=== PATIENT | male | born 1950 | race Caucasian/White ===

== ENCOUNTER 2018-04-26 08:41 | Emergency (ER) | payer MEDICARE, BC | END 2018-04-26 09:50 | disposition home or self-care (01) | LOC: ERS 08:41 | DX: M25.561 Pain in right knee (principal); M25.562 Pain in left knee; I10 Essential (primary) hypertension; E78.00 Pure hypercholesterolemia, unspecified; F32.9 Major depressive disorder, single episode, unspecified; Z79.899 Other long term (current) drug therapy | CPT/HCPCS: 99282 ==

== ENCOUNTER 2018-07-02 09:47 | Outpatient (CLI) | payer MEDICARE, BC ==
--- NOTE | 2018-07-02 12:12 | RAD ---
NEUTRAL FLEXION AND EXTENSION LATERAL RADIOGRAPHS OF THE CERVICAL SPINE: Date: 07/02/18 COMPARISON: None. HISTORY: Cervical spine pain. FINDINGS: There is mid degenerative change at the atlantoaxial interspace. There is mild corticated contour irr egularity involving the dens, which could be congenital in nature, or could be related to remote frac ture. The neutral lateral examination demonstrates disc space narrowing, degenerative end plate garcia e, and anterior osteophyte formation at C4-5, C5-6, C6-7, and C7-T1, most prominent at C5-6 and C6-7. Neutral lateral imaging demonstrates anterolisthesis of C7 on T1 measuring approximately 4.0 mm. Thi s is stable on extension imaging. It is not well visualized on flexion imaging. No additional areas o f anterolisthesis or retrolisthesis noted on the extension view. On the flexion view, there is minima l anterolisthesis at C2-3, C3-4, and C4-5 measuring in the 2.0 mm range. IMPRESSION: Multilevel degenerative change noted within the cervical spine, most prominent inferiorly. There is a nterolisthesis at the C7-T1 level as above. POS: [facility]
== END 2018-07-02 09:48 | disposition home or self-care (01) ==
LOC: TBSIIMAG 09:47
PROVIDERS: ATTEND Neurological Surgery
DX: M54.2 Cervicalgia (principal); M47.892 Other spondylosis, cervical region; M43.13 Spondylolisthesis, cervicothoracic region
CPT/HCPCS: 72040

== ENCOUNTER 2018-07-13 13:00 | Outpatient (CLI) | payer MEDICARE, BC ==
--- NOTE | 2018-07-13 16:15 | MRI ---
MRI OF THE CERVICAL SPINE WITHOUT CONTRAST: INDICATION: Cervical radiculopathy. The patient reportedly has a crick in his neck with bilateral hand num bness for the last 6 weeks. COMPARISON: Radiograph of the cervical spine dated July 02, 2018. FINDINGS: There is a bony hemangioma within T2. The bone marrow signal intensity appears within normal limits. The posterior fossa is unremarkable-appearing. There is loss of the normal disk signal and height at T4-5, C5-6, C6-7, and C7-T1. There is grade I anterolisthesis of C7 on T1. The visualized prevertebral soft tissues appear within normal limits. Craniocervical junction on the sagittal images appear within normal limits. At C2-C3, there is moderate facet joint degenerative change and a broad-based disk bulge. There is n o appreciable central canal or neural foraminal narrowing. At C3-4, there is moderate facet joint degenerative change and a broad-based disk bulge. There is no appreciable central canal or neural foraminal narrowing. At C4-5, there is a broad-based bulge with a superimposed central protrusion causing mild effacement of the ventral spinal cord without cord signal abnormality. There is uncovertebral hypertrophy great er on the left inducing moderate left and mild right neural foraminal narrowing. At C5-6, there is a broad-based bulge with uncovertebral hypertrophy and facet joint degenerative tati nge inducing moderate right and mild left neural foraminal narrowing with mild central canal narrowin g. At C6-7, there is a broad-based bulge with uncovertebral hypertrophy inducing mild bilateral neural f oraminal narrowing and mild central canal narrowing. At C7-T1, there is a broad-based bulge without appreciable central canal or neural foraminal narrowin g. IMPRESSION: 1. Multilevel spondylosis of the cervical spine most pronounced at C4-5 through C7-T1. There is mil d central canal narrowing seen at c4-5, C5-6, and C6-7. 2. Grade I anterolisthesis of C7 on T1. 3. Multilevel neural foraminal narrowing as above. 4. Bony hemangioma within T2. POS: [facility]
== END 2018-07-13 13:01 | disposition home or self-care (01) ==
LOC: TBSIIMAG 13:00
PROVIDERS: ATTEND Neurological Surgery
DX: M47.22 Other spondylosis with radiculopathy, cervical region (principal); M47.23 Other spondylosis with radiculopathy, cervicothoracic region; M48.02 Spinal stenosis, cervical region; M99.81 Other biomechanical lesions of cervical region; M43.13 Spondylolisthesis, cervicothoracic region; D18.09 Hemangioma of other sites
CPT/HCPCS: 72141

== ENCOUNTER 2018-12-16 09:01 | Outpatient (CLI) | payer MEDICARE, BC ==
--- NOTE | 2018-12-16 09:12 | RAD ---
TWO VIEWS CHEST: Comparison: 09-04-13 History: Cough. FINDINGS: Two views of the chest show normal sized cardiomediastinal silhouette. There is no evidence of consol idation, mass, or pleural effusion. The bones are unremarkable. IMPRESSION: No evidence of acute cardiopulmonary disease. POS: [facility]
== END 2018-12-16 09:02 | disposition home or self-care (01) ==
LOC: RAD-FRANK 09:01
PROVIDERS: ATTEND Nurse Practitioner Family
DX: J41.1 Mucopurulent chronic bronchitis (principal)
CPT/HCPCS: 71046

== ENCOUNTER 2019-03-18 06:55 | Outpatient (CLI) | payer MEDICARE, BC ==
--- NOTE | 2019-03-18 07:58 | ULT ---
GALLBLADDER ULTRASOUND: Date: 03/18/19 COMPARISON: 11/30/14. HISTORY: Right upper quadrant pain. FINDINGS: The head and proximal pancreatic body have a normal echotexture. The remainder of the pancreas is obs cured by bowel gas. Hepatic parenchyma demonstrates a heterogeneous echotexture, which may be due to hepatic steatosis or hepatocellular disease. Subsequent evaluation for hepatic masses and intrahepatic biliary dilatation limited. Right hepatic lobe measures 18.0 cm. Main portal vein is patent. Appropriate direction of flow. Common bile duct diameter is 0.5 cm. No sonographic evidence of cholelithiasis, gallbladder wall thickening, or pericholecystic fluid. Neg ative Baker's sign. Right kidney has a normal cortical echotexture. No hydronephrosis. Right kidney measures 4.8 x 10.7 x 4.9 cm. IMPRESSION: 1. No sonographic evidence of cholelithiasis or cholecystitis. 2. Increased echotexture of the liver, likely due to hepatic steatosis. Consider further imaging if there is concern for liver mass. POS: [facility]
== END 2019-03-18 06:56 | disposition home or self-care (01) ==
LOC: SCSULT 06:55
PROVIDERS: ATTEND Internal Medicine Gastroenterology
DX: R10.11 Right upper quadrant pain (principal); R93.2 Abnormal findings on diagnostic imaging of liver and biliary tract
CPT/HCPCS: 76705

== ENCOUNTER 2019-05-05 17:42 | Emergency (ER) | payer MEDICARE, BC ==
[2019-05-05] MEDS ORDERED: cloNIDine 0.1 MG TAB ONE (18:06)
[2019-05-05 18:15] LABS: #Basophils 0.1 thou/uL (0.0-0.2); #Eosinphils 0.2 thou/uL (0.0-0.7); #Lymphocytes 1.8 thou/uL (1.20-3.40); #Monocytes 0.5 thou/uL (0.11-0.59); #Neutrophils 5.6 thou/uL (1.40-6.50); %Basophils 0.7 % (0.0-1.0); %Eosinophils 2.4 % (0.0-10.0); %Lymphocytes 22.5 % (21.0-51.0); %Monocytes 6.1 % (0.0-10.0); %Neutrophils 68.4 % (42.0-75.0); Hemoglobin 16.1 g/dL (14.0-18.0); Mean Corpuscular HGB CONC 34.3 g/dL (32.0-36.0); Mean Corpuscular Hemoglobin 30.5 pg (27.0-31.0); Mean Corpuscular Volume 89.1 fL (78.0-98.0); Mean Platelet Volume 6.8 fL (7.4-10.4); Platelet Count 172 thou/uL (130-400); RBC Distribution Width 11.8 % (11.5-14.5); Red Blood Cell (RBC) Count 5.27 mill/uL (4.70-6.10); White Blood Cell (WBC) Count 8.2 thou/uL (4.8-10.8)
[2019-05-05 18:41] LABS: ALT (SGPT) 36 U/L (8-55); AST (SGOT) 28 U/L (5-34); Albumin 4.2 g/dL (3.4-4.8); Alkaline Phosphatase 75 U/L (40-150); Anion Gap 13 mmol/L (10-20); BUN (Urea Nitrogen) 14 mg/dL (8.4-25.7); Bilirubin, Total 0.5 mg/dL (0.2-1.2); Calc. Creatinine Clearance 0 mL/min (70-130); Calcium 9.4 mg/dL (7.8-10.44); Carbon Dioxide 26 mmol/L (23-31); Chloride 104 mmol/L (98-107); Estimated GFR-MDRD Greater than 90; Globulin 3.1 g/dL (2.4-3.5); Glucose 143 mg/dL (80-115); Protein, Total 7.3 g/dL (5.8-8.1); Sodium 139 mmol/L (136-145)
--- NOTE | 2019-05-05 18:43 | RAD ---
PORTABLE CHEST: 05/05/19 HISTORY: Chest pain. Hypertension. Lungs are clear. Heart and mediastinum unremarkable. Vasculature normal. IMPRESSION: No acute findings. POS: [facility]
== END 2019-05-05 19:15 | disposition home or self-care (01) ==
LOC: ERS 17:42
DX: I10 Essential (primary) hypertension (principal); F32.9 Major depressive disorder, single episode, unspecified; Z79.899 Other long term (current) drug therapy
CPT/HCPCS: 71045; 80053; 84484; 85025; 93005

== ENCOUNTER 2019-05-30 17:25 | Emergency (ER) | payer MEDICARE, BC ==
[2019-05-30 17:52] LABS: #Basophils 0.1 thou/uL (0.0-0.2); #Eosinphils 0.2 thou/uL (0.0-0.7); #Lymphocytes 2.1 thou/uL (1.20-3.40); #Monocytes 0.6 thou/uL (0.11-0.59); #Neutrophils 3.6 thou/uL (1.40-6.50); %Eosinophils 2.9 % (0.0-10.0); %Lymphocytes 32.4 % (21.0-51.0); %Monocytes 8.5 % (0.0-10.0); %Neutrophils 55.2 % (42.0-75.0); Hemoglobin 15.1 g/dL (14.0-18.0); Mean Corpuscular HGB CONC 34.7 g/dL (32.0-36.0); Mean Corpuscular Hemoglobin 30.8 pg (27.0-31.0); Mean Corpuscular Volume 88.7 fL (78.0-98.0); Mean Platelet Volume 7.1 fL (7.4-10.4); Platelet Count 207 thou/uL (130-400); RBC Distribution Width 11.7 % (11.5-14.5); White Blood Cell (WBC) Count 6.5 thou/uL (4.8-10.8)
[2019-05-30 18:14] LABS: ALT (SGPT) 20 U/L (8-55); AST (SGOT) 16 U/L (5-34); Albumin 4.3 g/dL (3.4-4.8); Alkaline Phosphatase 66 U/L (40-150); Anion Gap 15 mmol/L (10-20); BUN (Urea Nitrogen) 16 mg/dL (8.4-25.7); Bilirubin, Total 0.5 mg/dL (0.2-1.2); Calc. Creatinine Clearance 0 mL/min (70-130); Calcium 9.6 mg/dL (7.8-10.44); Carbon Dioxide 21 mmol/L (23-31); Chloride 105 mmol/L (98-107); Estimated GFR-MDRD 70; Globulin 2.5 g/dL (2.4-3.5); Glucose 180 mg/dL (80-115); Potassium 3.8 mmol/L (3.5-5.1); Protein, Total 6.8 g/dL (5.8-8.1); Sodium 137 mmol/L (136-145)
[2019-05-30] MEDS ORDERED: Acetaminophen 500 MG TAB ONE (19:25)
--- NOTE | 2019-05-30 22:13 | CT ---
CT BRAIN WITHOUT CONTRAST: Date: 05/30/19 HISTORY: Dizziness. Hypertension. Lightheadedness. Headache. FINDINGS: There are no previous exams for comparison. No evidence of infarct, hemorrhage, midline shift, or abnormal extra-axial fluid collections are seen . The ventricular size is appropriate and the basilar cisterns are patent. The bony calvarium is inta ct. The visualized paranasal sinuses and mastoid air cells are well aerated. IMPRESSION: No CT evidence of acute intracranial process. POS: [facility]
== END 2019-05-30 21:20 | disposition home or self-care (01) ==
LOC: ERS 17:25
DX: R42 Dizziness and giddiness (principal); I10 Essential (primary) hypertension; E78.00 Pure hypercholesterolemia, unspecified; F32.9 Major depressive disorder, single episode, unspecified; Z87.891 Personal history of nicotine dependence; Z79.899 Other long term (current) drug therapy
CPT/HCPCS: 36415; 70450; 80053; 82550; 84484; 85025; 93005; 94760

== ENCOUNTER 2019-07-28 07:47 | Outpatient (CLI) | payer MEDICARE, BC ==
--- NOTE | 2019-07-28 11:32 | MRI ---
MR VENOGRAM: Date: 07/28/19 HISTORY: Chronic pulsatile tinnitus. TECHNIQUE: Routine noncontrast enhanced 2D [id number] MR angiography obtained. FINDINGS: The suprasagittal sinus appears grossly unremarkable. There is an area of incomplete signal within th e posterior inferior aspect of the superior sagittal sinus just proximal to the torcula which is like ly artifactual in nature. The transverse sinus, sigmoid sinus, and internal jugular vein appear mayra l on the right. The transverse sinus on the left is nonvisualized. The sigmoid sinus on the left is v isualized and is quite small, as is the left internal jugular vein. The straight sinus, vein of Golden, and internal cerebral veins appear patent. IMPRESSION: Transverse sinus nonvisualized on left. Sigmoid sinus and internal jugular vein on left are hypoplast ic. 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 The s tudy of choice to evaluate the dural venous sinuses would probably be CT angiogram in this setting. POS: [facility]
--- NOTE | 2019-07-28 14:24 | MRI ---
MR ANGIOGRAM HEAD: 07/28/2019 HISTORY: Pulsatile tenderness. TECHNIQUE: Routine noncontrast enhanced [id number] MR angiography of the brain obtained. Diffusion-weighted imaging was obtained as well. FINDINGS: The diffusion-weighted imaging demonstrates no evidence for acute infarction. The imaged portions of the bilateral vertebral arteries are unremarkable. The basilar artery and its branches are patent. There is a patent posterior communicating artery on t he right. No saccular aneurysm, high grade stenosis or vascular occlusion is seen involving the posterior circu lation. The imaged extracranial ICA is unremarkable bilaterally. The A1 segment is patent bilaterally as are the distal JOSE L branches. The M1 segment and MCA bifurcation appear unremarkable bilaterally, as do distal bilateral MCA branch es. No saccular aneurysm, high grade stenosis or vascular occlusion is seen involving the anterior ci rculation. IMPRESSION: Unremarkable magnetic resonance angiogram of the head. POS: [facility]
== END 2019-07-28 07:48 | disposition home or self-care (01) ==
LOC: BICMRI 07:47
PROVIDERS: ATTEND Specialist
DX: H93.A3 Pulsatile tinnitus, bilateral (principal)
CPT/HCPCS: 70544; 70551

== ENCOUNTER 2019-08-10 13:36 | Outpatient (CLI) | payer MEDICARE, BC ==
--- NOTE | 2019-08-10 15:30 | CT ---
Exam: CT angiogram of the head HISTORY: Pulsatile tinnitus COMPARISON: None TECHNIQUE: Noncontrast head CT is performed in the axial plane. CT angiogram of the head is performed in the axial plane. Three-dimensional reformatted images are submitted for interpretation. FINDINGS: Noncontrast head CT: No parenchymal hemorrhage No extra-axial hematoma No midline shift Basilar cisterns are patent Brain volume is age-appropriate Cortical camacho-white matter differentiation preserved No hydrocephalus Calvarium is intact. Small mucous retention cyst in both maxillary sinuses. Adequate mastoid air cell aeration Postcontrast head CT: Cortical camacho-white matter differentiation is preserved. Pathologic enhancement the brain parenchyma CT ANGIOGRAM: The distal cervical internal carotid arteries have symmetric enhancement and luminal di ameter Anterior circulation: Symmetric enhancement and luminal diameter the A1 and M1 segments. Proximal A2 segments and proximal MCA branches are essentially symmetric. No evidence of aneurysm or significant stenosis in the anterior circulation Posterior circulation: Visualized distal cervical vertebral arteries as well as the intracranial vert ebral arteries are essentially patent. Right PICA artery origin is unremarkable. Left PICA artery origin is not adequately assessed. Both vertebral arteries supply a normal appearing basilar artery. There is appropriate enhancement and luminal diameter. Left and right P1 segments have appropriate enhancement and luminal diameter. No evidence of aneurysm or vascular occlusion. IMPRESSION: Unremarkable CT angiogram of the head. Transcribed Date/Time: 08/10/2019 3:49 PM
== END 2019-08-10 13:37 | disposition home or self-care (01) ==
LOC: BICCT 13:36
PROVIDERS: ATTEND Specialist
DX: H93.A3 Pulsatile tinnitus, bilateral (principal)
CPT/HCPCS: 70496; 82565

== ENCOUNTER 2019-08-13 10:11 | Outpatient (CLI) | payer MEDICARE, BC ==
--- NOTE | 2019-08-13 10:53 | CT ---
CT OF THE ABDOMEN AND PELVIS WITH IV CONTRAST INDICATION: Weight loss and left upper quadrant abdominal pain COMPARISON: None FINDINGS: ABDOMEN: Lung bases: Clear Liver: No focal lesion. Gallbladder: Normal appearing. Pancreas: Normal. Adrenal glands: Normal. Spleen: Splenic camacho and moderate Kidneys and ureters: There are small subcentimeter cysts within the right kidney. No hydronephrosis i s demonstrated. Vasculature: There are mild vascular calcifications seen involving the visualized vasculature. Lymph nodes:No lymphadenopathy. Free fluid in abdomen:No free fluid is evident. PELVIS: Small and large bowel: There are scattered colonic diverticula involving the colon without evidence o f active diverticulitis. The small bowel is of normal caliber. Appendix:Normal Bladder: Normal. Rectal and perirectal soft tissues:Normal. Reproductive structures: Normal. Free fluid in pelvis: No free fluid is evident. Lymphadenopathy pelvis: No lymphadenopathy is evident. Osseous structures: No acute osseous abnormality. No destructive osteolytic or osteoblastic lesion i s identified. There is scattered degenerative and osteoarthritic changes. Soft tissues:Normal. IMPRESSION: 1. No acute abnormality demonstrated within the abdomen and pelvis to explain the patient's weight lo ss and left upper quadrant abdominal pain. 2. Small right renal cyst 3. Colonic diverticulosis 4. Mild atherosclerotic disease of the abdominal aorta.
[2019-08-13] MEDS ORDERED: ISOVUE-370 76%-LOCM 1 ML ONE (12:00)
== END 2019-08-13 10:12 | disposition home or self-care (01) ==
LOC: BICCT 10:11
PROVIDERS: ATTEND Physician Assistant Medical
DX: R63.4 Abnormal weight loss (principal); R10.12 Left upper quadrant pain; N28.1 Cyst of kidney, acquired; K57.30 Diverticulosis of large intestine without perforation or abscess without bleeding; I70.0 Atherosclerosis of aorta
CPT/HCPCS: 74177; Q9966

== ENCOUNTER 2019-10-23 11:08 | Observation (INO) | payer MEDICARE, BC ==
[2019-10-23] MEDS ORDERED: Aspirin Chewable 81 MG TAB ONE (11:19)
[2019-10-23] MEDS ORDERED: Nitroglycerin 2% Ointment 1 INCH/1 GM Packet ONE (11:19)
[2019-10-23 11:40] LABS: #Eosinphils 0.2 thou/uL (0.0-0.7); #Lymphocytes 1.8 thou/uL (1.20-3.40); #Monocytes 0.6 thou/uL (0.11-0.59); #Neutrophils 3.5 thou/uL (1.40-6.50); %Basophils 0.6 % (0.0-1.0); %Eosinophils 3.2 % (0.0-10.0); %Lymphocytes 28.8 % (21.0-51.0); %Monocytes 9.4 % (0.0-10.0); %Neutrophils 58.1 % (42.0-75.0); Hemoglobin 16.2 g/dL (14.0-18.0); Mean Corpuscular HGB CONC 34.7 g/dL (32.0-36.0); Mean Corpuscular Hemoglobin 30.8 pg (27.0-31.0); Mean Corpuscular Volume 88.9 fL (78.0-98.0); Mean Platelet Volume 7.2 fL (7.4-10.4); Platelet Count 186 thou/uL (130-400); RBC Distribution Width 12.2 % (11.5-14.5); Red Blood Cell (RBC) Count 5.26 mill/uL (4.70-6.10); White Blood Cell (WBC) Count 6.1 thou/uL (4.8-10.8)
--- NOTE | 2019-10-23 11:44 | RAD ---
Exam: Chest one view HISTORY:Chest pain Comparison: 05/05/2019 FINDINGS: Cardiac silhouette: Normal Aorta: Unremarkable Pulmonary vessels: Normal Costophrenic angles: Clear LUNGS: No masses or consolidation. Pneumothorax: None Osseous abnormalities: None IMPRESSION: No acute cardiopulmonary process.
[2019-10-23 11:58] LABS: ALT (SGPT) 25 U/L (8-55); AST (SGOT) 16 U/L (5-34); Albumin 4.4 g/dL (3.4-4.8); Alkaline Phosphatase 77 U/L (40-110); Anion Gap 13 mmol/L (10-20); BUN (Urea Nitrogen) 14 mg/dL (8.4-25.7); Bilirubin, Total 0.5 mg/dL (0.2-1.2); CK (CPK) 48 U/L (30-200); Calc. Creatinine Clearance 0 mL/min (70-130); Calcium 9.6 mg/dL (7.8-10.44); Carbon Dioxide 27 mmol/L (23-31); Chloride 104 mmol/L (98-107); Estimated GFR-MDRD Greater than 90; Glucose 104 mg/dL (80-115); Potassium 3.9 mmol/L (3.5-5.1); Protein, Total 7.4 g/dL (5.8-8.1); Sodium 140 mmol/L (136-145)
[2019-10-23] MEDS ORDERED: HYDROcodone/Acetaminophen 5/325 mg Tablet PO PRN ×2 (13:39)
[2019-10-23] MEDS ORDERED: Acetaminophen 325 MG TAB PO PRN ×2 (13:39→15:32)
[2019-10-23] MEDS ORDERED: Ondansetron ODT 4 MG TAB SL PRN (13:39)
[2019-10-23] MEDS ORDERED: Ondansetron PF 4 MG/2 ML Vial IVP PRN (13:39)
[2019-10-23 13:43] VITALS: BMI 27.8
[2019-10-23 14:48] LABS: Troponin I Less than 0.010 ng/mL (< 0.028)
--- NOTE | 2019-10-23 15:07 | CON ---
DATE OF CONSULTATION: 10/23/2019 REASON FOR CONSULTATION: Chest pain. HISTORY OF PRESENT ILLNESS: Mr. Perdue is a very pleasant 69-year-old white gentleman, who comes to the hospital for chest pain. He states that he developed bronchitis about a month ago and has been having this cough ever since. He started having chest pain in midsternal area yesterday and it has been pretty much constant all this time, so became worried and came in for evaluation. Cardiology has been consulted for evaluation of chest pain. He has seen Dr. Moreau in the past. The last time he saw him was in 10/2018, at which time he had an echo and was told everything was unremarkable. He has had a stress test, which was probably 2 or 3 years ago, and he was told that everything was normal. He has been told he needs to take statin drugs, but he has not been taking these. He apparently was on atenolol and losartan on higher doses before, but he lost about 40 pounds and he is cutting them in half now as he does not need as much as he did before. PAST MEDICAL HISTORY: 1. Hypertension. 2. GERD. PAST SURGICAL HISTORY: 1. Right knee ACL repair. 2. Hemorrhoid surgery. SOCIAL HISTORY: Former tobacco user, quit about 40 years ago. No alcohol or drugs. He quit drinking alcohol about 8 months ago. FAMILY HISTORY: Noncontributory. ALLERGIES: TETRACYCLINE GIVES HIM TONGUE SWELLING. OUTPATIENT MEDICATIONS: 1. Atenolol 25 mg a day. 2. Losartan half a tablet of a 50 mg of 25 mg daily. REVIEW OF SYSTEMS: A 12-point review of systems was done and was all negative unless stated in the history of present illness. PHYSICAL EXAMINATION: VITAL SIGNS: Temperature 98.2, pulse 62, respiratory rate 20, saturating 96% on room air, and blood pressure 140/88. GENERAL: Awake, alert, and oriented x3, in no distress. HEENT: Normocephalic and atraumatic. NECK: Supple. LUNGS: Clear. CARDIOVASCULAR: S1-S2. No S3 or S4. No murmurs. ABDOMEN: Soft. Positive bowel sounds. EXTREMITIES: No edema. SKIN: Warm and dry. LABORATORY DATA: Laboratory work was reviewed. So far, CBC was unremarkable. Chemistry was completely normal. GFR greater than 90. BNP was 28. Troponin I was undetectable x1. DIAGNOSTIC DATA: EKG was reviewed, right bundle-branch block, but no ischemic changes. Chest x-ray was reviewed. ASSESSMENT AND PLAN: 1. Chest pain, atypical. We will risk stratify with a stress test. Echocardiogram to be done. 2. Hypertension. Blood pressure well controlled. Continue home regimen. Thank you for letting us to participate in the care of your patient. We will follow. Job ID: [id number]
[2019-10-23] MEDS ORDERED: Acetaminophen 650 MG Suppository PR PRN (15:32)
--- NOTE | 2019-10-23 15:58 | PDOC.HHP ---
Hospitalist HPI - History of Present Illness Chest pain History of Present Illness: Mr. Perdue presents with complaints of central chest pain that started yesterday evening and remained constant until today. He is unable to describe the pain nor state the severity but denies any associated shortness of breath, diaphoresis, lightheadedness, nausea or vomiting. States the pain did not radiate. At present the pain is gone. He came in because he was afraid he had recurrent bronchitis which he was diagnosed with in the last month. He denies any fevers, chills, sweats or cough. Occasionally when he clears his throat he has clear sputum. Patient reports his last stress test was 2 years ago. Reports a history of drinking heavily in the past but quit due to a gastric ulcer. ED Course: In the ED he had an EKG showing a right bundle branch block. Labs done showed normal renal function. Unremarkable FBC. BNP 28. Initial trop was negative. Cardiology was consulted. CXR done was unremarkable. Hospitalist ROS - Review of Systems Constitutional: denies: fever, chills, sweats, weakness, malaise, other Eyes: denies: pain, vision change, conjunctivae inflammation, eyelid inflammation, redness, other ENT: denies: ear pain, ear discharge, nose pain, nose discharge, nose congestion , mouth pain, mouth swelling, throat pain, throat swelling, other Respiratory: reports: sputum (clear, in the mornings there is a mild yellow color to it). denies: cough, dry, shortness of breath, hemoptysis, SOB with excertion, pleuritic pain, wheezing, other Cardiovascular: reports: chest pain (has now resolved). denies: palpitations, orthopnea, paroxysmal noc. dyspnea, edema, light headedness, other Gastrointestinal: denies: nausea, vomiting, abdominal pain, diarrhea, constipation, melena, hematochezia, other Genitourinary: denies: dysuria, frequency, incontinence, hematuria, retention, other Musculoskeletal: denies: neck pain, shoulder pain, arm pain, back pain, hand pain, leg pain, foot pain, other Skin: denies: rash, lesions, sheryl, bruising, other Neurological: denies: weakness, numbness, incoordination, change in speech, confusion, seizures, other Hospitalist History - Past Medical History Source: patient Cardiac: reports: HTN Gastrointestinal: reports: GERD - Past Surgical History Past Surgical History: reports: Other (Right knee ACL repair Hemmorhoidectomy) - Exam General Appearance: NAD, awake alert Eye: PERRL, anicteric sclera ENT: normocephalic atraumatic, no oropharyngeal lesions, moist mucosa Neck: supple, symmetric, no lymphadenopathy Heart: RRR, no murmur, no gallops, no rubs, normal peripheral pulses Respiratory: CTAB, no wheezes, no rales, no ronchi, normal chest expansion, no tachypnea Gastrointestinal: soft, non-tender, non-distended, normal bowel sounds, no guarding, no rigidity Extremities: no edema Skin: normal turgor, no lesions, no rashes Neurological: cranial nerve grossly intact, no weakness, no focal deficits Musculoskeletal: normal tone, normal strength, no muscle wasting Psychiatric: normal affect, normal behavior, A&O x 3 Hospitalist Results - Labs Result Diagrams: 10/23/19 11:23 10/23/19 11:23 Lab results: WBC 6.1 thou/uL (4.8-10.8) 10/23/19 11:23 Hgb 16.2 g/dL (14.0-18.0) 10/23/19 11:23 Hct 46.8 % (42.0-52.0) 10/23/19 11:23 MCV 88.9 fL (78.0-98.0) 10/23/19 11:23 Plt Count 186 thou/uL (130-400) 10/23/19 11:23 Neutrophils % 58.1 % (42.0-75.0) 10/23/19 11:23 Sodium 140 mmol/L (136-145) 10/23/19 11:23 Potassium 3.9 mmol/L (3.5-5.1) 10/23/19 11:23 Chloride 104 mmol/L (98-107) 10/23/19 11:23 Carbon Dioxide 27 mmol/L (23-31) 10/23/19 11:23 BUN 14 mg/dL (8.4-25.7) 10/23/19 11:23 Creatinine 0.83 mg/dL (0.7-1.3) 10/23/19 11:23 Glucose 104 mg/dL (80-115) 10/23/19 11:23 Calcium 9.6 mg/dL (7.8-10.44) 10/23/19 11:23 Total Bilirubin 0.5 mg/dL (0.2-1.2) 10/23/19 11:23 AST 16 U/L (5-34) 10/23/19 11:23 ALT 25 U/L (8-55) 10/23/19 11:23 Alkaline Phosphatase 77 U/L (40-110) 10/23/19 11:23 Creatine Kinase 48 U/L (30-200) 10/23/19 11:23 Troponin I Less than 0.010 ng/mL (< 0.028) 10/23/19 14:13 B-Natriuretic Peptide 28.6 pg/mL (0-100) 10/23/19 11:23 Serum Total Protein 7.4 g/dL (5.8-8.1) 10/23/19 11:23 Albumin 4.4 g/dL (3.4-4.8) 10/23/19 11:23 - Radiology Interpretation Chest x-ray Status: report reviewed by ri Hospitalist H&P A/P - Problem (1) Chest pain, atypical Code(s): R07.89 - OTHER CHEST PAIN Status: Resolved (2) Hypertension Code(s): I10 - ESSENTIAL (PRIMARY) HYPERTENSION Status: Chronic (3) GERD (gastroesophageal reflux disease) Code(s): K21.9 - GASTRO-ESOPHAGEAL REFLUX DISEASE WITHOUT ESOPHAGITIS Status: Chronic (4) History of gastric ulcer Code(s): Z87.19 - PERSONAL HISTORY OF OTHER DISEASES OF THE DIGESTIVE SYSTEM Status: Chronic - Plan Plan: Trend troponins, add-on Mg+. TSH and Lipid Panel with AM labs. Seen by Dr. Rich, patient will undergo echo and stress test. Continue cardiac monitoring. Monitor BP. Resume home medications once verified. Famotidine 20 mg BID. Mechanical SCDs/Walking program Code status: FULL Surrogate decision maker: Lu Perdue.
[2019-10-23] MEDS: Nitroglycerin 2% Ointment 1 INCH/1 GM Packet TOP SCH ×2 (16:20→22:27)
[2019-10-23 18:18] LABS: Troponin I Less than 0.010 ng/mL (< 0.028)
[2019-10-23] MEDS: Famotidine/PF 20 mg/2ml Vial SLOW IVP SCH (19:05)
[2019-10-24 04:23] LABS: #Basophils 0.1 thou/uL (0.0-0.2); #Eosinphils 0.2 thou/uL (0.0-0.7); #Lymphocytes 1.5 thou/uL (1.20-3.40); #Monocytes 0.6 thou/uL (0.11-0.59); #Neutrophils 3.8 thou/uL (1.40-6.50); %Eosinophils 2.7 % (0.0-10.0); %Lymphocytes 24.7 % (21.0-51.0); %Monocytes 9.1 % (0.0-10.0); %Neutrophils 62.6 % (42.0-75.0); Hemoglobin 14.5 g/dL (14.0-18.0); Mean Corpuscular HGB CONC 33.2 g/dL (32.0-36.0); Mean Corpuscular Hemoglobin 29.4 pg (27.0-31.0); Mean Corpuscular Volume 88.7 fL (78.0-98.0); Platelet Count 152 thou/uL (130-400); RBC Distribution Width 12.2 % (11.5-14.5); Red Blood Cell (RBC) Count 4.94 mill/uL (4.70-6.10); White Blood Cell (WBC) Count 6.1 thou/uL (4.8-10.8)
[2019-10-24 04:58] LABS: Anion Gap 9 mmol/L (10-20); BUN (Urea Nitrogen) 13 mg/dL (8.4-25.7); Calc. Creatinine Clearance 108 mL/min (70-130); Calcium 8.6 mg/dL (7.8-10.44); Carbon Dioxide 27 mmol/L (23-31); Cardiac Risk 4.6 (Less than 4.5); Chloride 108 mmol/L (98-107); Cholesterol 237 mg/dl (< 200 Desired); Estimated GFR-MDRD Greater than 90; Glucose 90 mg/dL (80-115); HDL Cholesterol 51 mg/dL (>60 Neg Risk); LDL Cholesterol, Calculated 164 mg/dL; Potassium 3.8 mmol/L (3.5-5.1); Sodium 140 mmol/L (136-145); Triglycerides 108 mg/dL (Less than 150)
[2019-10-24] MEDS ORDERED: Losartan 25 MG TAB PO SCH (09:00)
[2019-10-24] MEDS ORDERED: Atenolol 25 MG TAB PO SCH (09:00)
[2019-10-24] MEDS ORDERED: Metamucil PACK PO SCH (09:00)
[2019-10-24] MEDS ORDERED: Multivit, Therapeutic 1 TAB PO SCH (09:00)
[2019-10-24 11:48] VITALS: BP 149/82; TEMP 98.3
[2019-10-24] MEDS: Famotidine/PF 20 mg/2ml Vial SLOW IVP SCH (11:52)
[2019-10-24] MEDS ORDERED: ADENOSINE 60 MG/20 ML VIAL ONE (12:00)
--- NOTE | 2019-10-24 12:32 | NM ---
NM Cardiac Stress W EF WF History: Chest pain Comparison: None. Findings: Stress and rest performed after the intravenous administration of technetium 99m sestamibi. Normal wall motion. Normal ejection fraction of 64%. No scar or ischemia. Impression: Normal nuclear medicine cardiac stress test.
--- NOTE | 2019-10-25 15:04 | DIS ---
DATE OF ADMISSION: 10/23/2019 DATE OF DISCHARGE: 10/24/2019 Mr. Perdue is a 69-year-old male who presented with chest pain. He had the chest pain since yesterday evening and remained constant till the presentation in the ED. The pain is substernal, pressure like, not related to exertion and not relieved by rest and he denied any shortness of breath, diaphoresis, lightheadedness, nausea or vomiting. During his stay, cardiac workup was done. Troponin was negative. EKG did not show any signs of ischemia and nuclear stress test was unremarkable. 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 On discharge, he was hemodynamically stable. PHYSICAL EXAMINATION: VITAL SIGNS: Unremarkable. GENERAL APPEARANCE: No apparent distress. Awake and alert. EYES: PERRL. ENT: Normocephalic and atraumatic. No oropharyngeal lesions. Moist mucosa. HEART: Regular rhythm and rate. No murmurs. No gallops. No rubs. Normal peripheral pulses. RESPIRATORY: Clear to auscultation bilaterally. No wheezes. No rales. No rhonchi. Normal chest expansion. No tachypnea. GI: Soft, nontender, and nondistended. Normal bowel sounds. No guarding. No rigidity. EXTREMITIES: No edema. NEUROLOGIC: Cranial nerves grossly intact. No weakness. No focal deficits. PSYCH: Alert and oriented x3. ASSESSMENT AND PLAN: This is a 69-year-old male who comes in with atypical chest pain. Cardia workup was negative. 1. Musculoskeletal chest pain: a. Cardiac workup was negative. b. The patient was advised to exercise appropriately and take antiinflammatories when having chest pain due to excessive exercise or long posture. c. The patient is scheduled with a Cardiology appointment. 2. Hypertension. a. Blood pressure was well controlled during his inpatient stay. b. We will continue home medications. 3. Gastroesophageal reflux disease. a. Symptoms were well controlled with home medication, so we will continue home medication. 4. History of gastric ulcer. a. The patient has been advised in the past to avoid using antiinflammatories considering gastric ulcer. b. Considering musculoskeletal pain, the patient was advised to use NSAIDs judiciously rather than Tylenol considering the more effective antiinflammatory effect of NSAIDs. . .. Job ID: [id number]
== END 2019-10-24 14:08 | disposition home or self-care (01) ==
LOC: ERS 11:08 → 2SW 13:42
PROVIDERS: ADMIT Internal Medicine; ATTEND Internal Medicine
DX: R07.89 Other chest pain (principal); I10 Essential (primary) hypertension; K21.9 Gastro-esophageal reflux disease without esophagitis; Z87.19 Personal history of other diseases of the digestive system; Z87.891 Personal history of nicotine dependence; Z79.899 Other long term (current) drug therapy
CPT/HCPCS: 71045; 78452; 80048; 80053; 80061; 82550; 83735; 83880; 84443; 84484 ×2; 85025 ×2; 93005; 93017; 93306; 96374; 96376; 99285; A9500; G0378 ×3; 36415; J0153; S0028

== ENCOUNTER 2022-04-03 10:17 | Outpatient (CLI) | payer MEDICARE, BC | END 2022-04-03 10:18 | disposition home or self-care (01) | LOC: TBSIIMAG 10:17 | PROVIDERS: ATTEND Neurological Surgery | DX: M47.26 Other spondylosis with radiculopathy, lumbar region (principal) | CPT/HCPCS: 72148 ==

== ENCOUNTER 2022-08-30 12:50 | Outpatient (CLI) | payer MEDICARE, BC ==
[2022-08-30 13:55] LABS: #Basophils 0.1 10x3/uL (0.0-0.2); #Eosinphils 0.1 10x3/uL (0.0-0.5); #Monocytes 0.5 10x3/uL (0.0-1.1); #Neutrophils 3.3 10x3/uL (1.5-8.4); %Basophils 1.1 % (0.0-2.0); %Eosinophils 2.2 % (0.0-6.0); %Lymphocytes 29.7 % (18.0-47.0); %Monocytes 8.1 % (0.0-10.0); %Neutrophils 58.5 % (40.0-75.0); Hemoglobin 14.4 g/dL (13.5-17.5); Mean Corpuscular HGB CONC 34.3 g/dL (32.0-36.0); Mean Corpuscular Hemoglobin 29.6 pg (27.0-33.0); Mean Corpuscular Volume 86.4 fl (81.2-95.1); Mean Platelet Volume 9.2 fl (7.4-10.4); Platelet Count 176 10x3/uL (150-450); RBC Distribution Width 12.8 % (11.5-14.5); Red Blood Cell (RBC) Count 4.86 10x6/uL (4.32-5.72); White Blood Cell (WBC) Count 5.6 10x3/uL (3.5-10.5)
[2022-08-30 14:16] LABS: Anion Gap 14 mmol/L (10-20); BUN (Urea Nitrogen) 17 mg/dL (8.4-25.7); Calc. Creatinine Clearance 0 mL/min (70-130); Calcium 8.9 mg/dL (7.8-10.44); Carbon Dioxide 22 mmol/L (23-31); Chloride 109 mmol/L (98-107); Estimated GFR 93; Glucose 116 mg/dL (80-115); Potassium 4.1 mmol/L (3.5-5.1); Sodium 141 mmol/L (136-145)
[2022-08-30 17:11] LABS: Hemoglobin A1c 5.1 % (4.0-6.0)
== END 2022-08-30 12:51 | disposition home or self-care (01) ==
LOC: LABBT 12:50
PROVIDERS: ATTEND Specialist
DX: Z01.818 Encounter for other preprocedural examination (principal); K57.92 Diverticulitis of intestine, part unspecified, without perforation or abscess without bleeding
CPT/HCPCS: 80048; 83036; 85025; 93005; 93010

== ENCOUNTER 2022-08-30 13:00 | Inpatient (IN) | payer MEDICARE, BC ==
[2022-09-02 11:17] VITALS: BMI 24.3
[2022-09-03] MEDS ORDERED: FENTANYL 50 MCG/ML 1 ML VIAL ONE (06:45)
[2022-09-03] MEDS ORDERED: Midazolam HCl 2 mg/2 ml Vial ONE (06:45)
[2022-09-03] MEDS ORDERED: EPINEPHrine 1 MG/ML AMP ONE ×2 (06:46→09:11)
[2022-09-03] MEDS ORDERED: Bupivacaine PF 0.5% 30 ML VIAL ONE (06:46)
[2022-09-03] MEDS ORDERED: Ketorolac Tromethamine 30 MG/ML VIAL ONE (07:23)
[2022-09-03] MEDS ORDERED: Acetaminophen 500 MG TAB ONE (07:23)
[2022-09-03] MEDS ORDERED: Dexamethasone 20 MG/5 ML VIAL ONE (08:15)
[2022-09-03] MEDS ORDERED: ePHEDrine 50 MG/ML VIAL ONE (08:15)
[2022-09-03] MEDS ORDERED: Rocuronium Bromide 10 MG/ML (10ML VIAL) ONE (08:15)
[2022-09-03] MEDS ORDERED: Glycopyrrolate 0.2 MG/ML 5 ML SYRINGE ONE (08:15)
[2022-09-03] MEDS ORDERED: Ondansetron PF 4 MG/2 ML Vial ONE (08:15)
[2022-09-03] MEDS ORDERED: NEOSTIGMINE 3 MG/3 ML SYR 3 MG/3 ML SYRINGE ONE (08:15)
[2022-09-03] MEDS ORDERED: PROPOFOL 200 MG/20 ML VIAL ONE (08:15)
[2022-09-03] MEDS ORDERED: Lidocaine 1% (PF) 30 ML VIAL ONE ×2 (08:40→09:11)
[2022-09-03] MEDS ORDERED: Bupivacaine/Epinephrine 0.25% 30 ML VIAL ONE (08:40)
[2022-09-03] MEDS ORDERED: HYDROmorphone 2 MG/ML VIAL ONE (08:56)
[2022-09-03] MEDS ORDERED: Magnesium 5 GM/10 ML Abboject SYRINGE ONE (08:56)
[2022-09-03] MEDS ORDERED: Sodium Chloride 0.9% 100 ML ONE (08:57)
[2022-09-03] MEDS ORDERED: cefOXitin 2 GM VIAL ONE ×3 (08:57→13:17)
[2022-09-03] MEDS ORDERED: HYDROmorphone 2 MG/ML VIAL SLOW IVP PRN (14:03)
[2022-09-03] MEDS ORDERED: Promethazine HCl 25 MG/ML VIAL IM PRN ×2 (14:03→15:38)
[2022-09-03] MEDS ORDERED: Ondansetron HCl/PF 4 MG/2 ML Vial IVP PRN (14:03)
[2022-09-03] MEDS ORDERED: Promethazine HCl 25 MG/ML VIAL IVPB PRN (14:03)
[2022-09-03] MEDS ORDERED: hydrALAZINE 20 MG/ML VIAL SLOW IVP PRN (15:38)
[2022-09-03] MEDS ORDERED: Ondansetron PF 4 MG/2 ML Vial IVP PRN (15:38)
[2022-09-03] MEDS ORDERED: Morphine 4 MG/ML VIAL SLOW IVP PRN (15:43)
[2022-09-03] MEDS: Ketorolac Tromethamine 30 MG/ML VIAL IVP SCH ×2 (16:24→21:08)
[2022-09-03] MEDS: D5 1/2 NS w/20 mEq KCL 1,000 ML IV SCH ×2 (16:25→23:58)
[2022-09-03] MEDS: Morphine 4 MG/ML VIAL SLOW IVP PRN ×2 (18:41→23:10)
[2022-09-03] MEDS: Famotidine/PF 20 mg/2ml Vial SLOW IVP SCH (21:08)
[2022-09-03] MEDS: Enoxaparin Sodium 40 MG/0.4 ML SYRINGE SC SCH (21:08)
[2022-09-03] MEDS: Rosuvastatin 10 MG TAB PO SCH (21:09)
[2022-09-03] MEDS: Famotidine 20 MG TAB PO SCH (21:09)
[2022-09-04] MEDS: Morphine 4 MG/ML VIAL SLOW IVP PRN ×2 (02:08→05:31)
[2022-09-04] MEDS: Ketorolac Tromethamine 30 MG/ML VIAL IVP SCH ×4 (04:15→21:16)
[2022-09-04] MEDS: D5 1/2 NS w/20 mEq KCL 1,000 ML IV SCH ×3 (04:15→16:53)
[2022-09-04 05:29] LABS: #Neutrophils 10.1 thou/uL (1.40-6.50); %Basophils 0.2 % (0.0-1.0); %Eosinophils 0.1 % (0.0-10.0); %Lymphocytes 8.3 % (21.0-51.0); %Monocytes 7.9 % (0.0-10.0); %Neutrophils 83.4 % (42.0-75.0); Hemoglobin 12.5 g/dL (14.0-18.0); Mean Corpuscular HGB CONC 32.4 g/dL (32.0-36.0); Mean Corpuscular Hemoglobin 29.3 pg (27.0-31.0); Mean Corpuscular Volume 90.5 fl (78.0-98.0); Mean Platelet Volume 7.2 fL (7.4-10.4); Platelet Count 152 10x3/uL (130-400); Red Blood Cell (RBC) Count 4.25 mill/uL (4.70-6.10)
[2022-09-04 06:00] LABS: Anion Gap 10 mmol/L (10-20); BUN (Urea Nitrogen) 10 mg/dL (8.4-25.7); Calc. Creatinine Clearance 87 mL/min (70-130); Calcium 8.2 mg/dL (7.8-10.44); Carbon Dioxide 22 mmol/L (23-31); Chloride 109 mmol/L (98-107); Estimated GFR 95; Glucose 121 mg/dL (80-115); Potassium 4.3 mmol/L (3.5-5.1); Sodium 137 mmol/L (136-145)
[2022-09-04] MEDS: Famotidine 20 MG TAB PO SCH ×2 (07:59→21:14)
[2022-09-04] MEDS: Atenolol 25 MG TAB PO SCH (07:59)
[2022-09-04] MEDS: Famotidine/PF 20 mg/2ml Vial SLOW IVP SCH ×2 (08:00→21:15)
[2022-09-04] MEDS: Losartan 25 MG TAB PO SCH (08:00)
[2022-09-04] MEDS ORDERED: HYDROcodone/Acetaminophen 7.5/325 mg Tablet PO PRN (09:32)
[2022-09-04] MEDS: HYDROcodone/Acetaminophen 7.5/325 mg Tablet PO PRN ×2 (14:47→23:46)
[2022-09-04] MEDS ORDERED: Bisacodyl 10 MG SUPP PR SCH (16:30)
[2022-09-04] MEDS: Rosuvastatin 10 MG TAB PO SCH (21:14)
[2022-09-04] MEDS: Melatonin 3 MG TAB PO PRN (21:14)
[2022-09-04] MEDS: Enoxaparin Sodium 40 MG/0.4 ML SYRINGE SC SCH (21:15)
[2022-09-05] MEDS: D5 1/2 NS w/20 mEq KCL 1,000 ML IV SCH ×2 (02:37)
[2022-09-05] MEDS: Ketorolac Tromethamine 30 MG/ML VIAL IVP SCH ×4 (04:25→21:23)
[2022-09-05 05:38] LABS: #Eosinphils 0.1 thou/uL (0.0-0.7); #Lymphocytes 1.7 thou/uL (1.20-3.40); #Monocytes 0.8 thou/uL (0.11-0.59); #Neutrophils 6.9 thou/uL (1.40-6.50); %Basophils 0.4 % (0.0-1.0); %Eosinophils 0.8 % (0.0-10.0); %Lymphocytes 18.1 % (21.0-51.0); %Monocytes 8.1 % (0.0-10.0); %Neutrophils 72.7 % (42.0-75.0); Mean Corpuscular HGB CONC 32.5 g/dL (32.0-36.0); Mean Corpuscular Volume 92.2 fl (78.0-98.0); Mean Platelet Volume 7.2 fL (7.4-10.4); Platelet Count 137 10x3/uL (130-400); RBC Distribution Width 12.1 % (11.5-14.5); White Blood Cell (WBC) Count 9.5 10x3/uL (4.8-10.8)
[2022-09-05] MEDS: Atenolol 25 MG TAB PO SCH (09:07)
[2022-09-05] MEDS: Famotidine/PF 20 mg/2ml Vial SLOW IVP SCH ×2 (09:08→19:58)
[2022-09-05] MEDS: Losartan 25 MG TAB PO SCH (09:08)
[2022-09-05] MEDS: Famotidine 20 MG TAB PO SCH ×2 (09:08→19:58)
[2022-09-05] MEDS: HYDROcodone/Acetaminophen 7.5/325 mg Tablet PO PRN (19:57)
[2022-09-05] MEDS: Melatonin 3 MG TAB PO PRN (19:57)
[2022-09-05] MEDS: Rosuvastatin 10 MG TAB PO SCH (19:58)
[2022-09-05] MEDS: Enoxaparin Sodium 40 MG/0.4 ML SYRINGE SC SCH (19:59)
[2022-09-06] MEDS: Ketorolac Tromethamine 30 MG/ML VIAL IVP SCH ×3 (03:51→15:38)
[2022-09-06] MEDS: Losartan 25 MG TAB PO SCH ×2 (08:16→11:53)
[2022-09-06] MEDS: Atenolol 25 MG TAB PO SCH (08:16)
[2022-09-06] MEDS: Famotidine 20 MG TAB PO SCH (08:17)
[2022-09-06] MEDS: Famotidine/PF 20 mg/2ml Vial SLOW IVP SCH ×2 (08:19→20:40)
[2022-09-06] MEDS ORDERED: Milk Of Magnesia 30 ML UDCUP PO PRN (09:33)
[2022-09-06] MEDS: HYDROcodone/Acetaminophen 7.5/325 mg Tablet PO PRN ×2 (10:58→17:10)
[2022-09-06] MEDS: Enoxaparin Sodium 40 MG/0.4 ML SYRINGE SC SCH (20:40)
[2022-09-06] MEDS: Rosuvastatin 10 MG TAB PO SCH (20:41)
[2022-09-06] MEDS ORDERED: Losartan 25 MG TAB PO SCH (21:00)
[2022-09-07] MEDS: HYDROcodone/Acetaminophen 7.5/325 mg Tablet PO PRN ×2 (01:54→08:44)
[2022-09-07 06:37] VITALS: TEMP 98.2
[2022-09-07 08:41] VITALS: BP 130/83
[2022-09-07] MEDS: Atenolol 25 MG TAB PO SCH (08:45)
[2022-09-07] MEDS: Famotidine/PF 20 mg/2ml Vial SLOW IVP SCH (08:46)
== END 2022-09-07 12:48 | disposition home or self-care (01) | DRG 331 ==
LOC: SURG A 09-03 06:36
PROVIDERS: ADMIT Specialist; ATTEND Specialist
PROC: 0DBN0ZZ Excision of Sigmoid Colon, Open Approach (ICD-10-PCS; principal; 2022-09-03)
DX: K57.32 Diverticulitis of large intestine without perforation or abscess without bleeding (principal); R33.9 Retention of urine, unspecified
CPT/HCPCS: 36415; 80048; 85025; 88307; A4649; J0171; J0694; J1100; J1170; J1650; J1885; J2001; J2250; J2270; J2405; J2704; J3010; J3475; J3480; J3490; S0020; S0028

== ENCOUNTER 2024-03-31 08:08 | Outpatient (CLI) | payer MEDICARE, BC | END 2024-03-31 08:09 | disposition home or self-care (01) | LOC: BICCT 08:08 | PROVIDERS: ATTEND Physician Assistant Medical | DX: K59.00 Constipation, unspecified (principal); R10.13 Epigastric pain; K57.30 Diverticulosis of large intestine without perforation or abscess without bleeding; Z90.49 Acquired absence of other specified parts of digestive tract | CPT/HCPCS: 74177; 82565 ==